=== PATIENT | female | born 1965 | race Caucasian/White ===

== ENCOUNTER → 2022-12-17 08:34 | Outpatient (CLI) | payer BC, SELFPAY ==
[2022-12-17 09:33] LABS: BUN Creatinine Ratio 14.5 (6-22); Blood Urea Nitrogen 10 mg/dL (7-17); Calcium 9.5 mg/dL (8.4-10.2); Carbon Dioxide 30 mmol/L (22-32); Chloride 102 mmol/L (98-107); Cholesterol 237 mg/dL (140-199); Estimated Glomerular Filt Rate > 60 mL/min (>60); Glucose 87 mg/dL (70-100); HDL Cholesterol 92 mg/dL (40-60); HEMOLYSIS < 15 (0-50); LDL Cholesterol Calculated 133 mg/dL (<100); Potassium 3.9 mmol/L (3.4-5.1); Sodium 136 mmol/L (137-145); Triglycerides 61 mg/dL (35-150)
[2022-12-17 09:49] LABS: Vitamin D 25 Hydroxy (D3) 33.3 ng/mL (30.0-100.0)
[2022-12-17 09:51] LABS: Free T3, Triiodothyronine Free 3.83 pg/mL (2.77-5.27); Free T4, Direct Thyroxine 1.17 ng/dL (0.78-2.19)
[2022-12-17 10:04] LABS: Thyroid Stimulating Hormone 1.12 uIU/mL (0.47-4.68)
== END ==
PROVIDERS: PCP Family Medicine; Referring Provider Family Medicine; Visit Provider Family Medicine
DX: E05.90 Thyrotoxicosis, unspecified without thyrotoxic crisis or storm (principal); E55.9 Vitamin D deficiency, unspecified; Z00.00 Encounter for general adult medical examination without abnormal findings; Z13.220 Encounter for screening for lipoid disorders
CPT/HCPCS: 36415; 80048; 80061; 82306; 84439; 84443; 84481

== ENCOUNTER → 2023-11-21 16:55 | Outpatient (CLI) | payer BC, SELFPAY ==
--- NOTE | 2023-11-21 16:58 | DI.RAD.S_ITS ---
PROCEDURE: XR FOOT LT MIN 3V INDICATIONS: Left foot pain TECHNIQUE: 3 views of the foot were acquired. COMPARISON: None. FINDINGS: Bones: No fractures or dislocations. Osteoarthritic changes are noted throughout left foot most notably in great toe and distal interphalangeal joints of 2nd through 5th toes. No suspicious bony lesions. Soft tissues: No tibiotalar joint effusion. Achilles tendon appears normal. IMPRESSION: [id number] left foot osteoarthritis more notably in great toe and distal interphalangeal joints. No fracture or dislocation. Dictated by: Manish Sorensen M.D. on 11/22/2023 at 10:54 Approved by: Manish Sorensen M.D. on 11/22/2023 at 10:55
== END ==
PROVIDERS: PCP Family Medicine; Referring Provider Nurse Practitioner Family; Visit Provider Nurse Practitioner Family
DX: M19.072 Primary osteoarthritis, left ankle and foot (principal); M79.672 Pain in left foot
CPT/HCPCS: 73630

== ENCOUNTER → 2024-08-04 08:52 | Outpatient (CLI) | payer BC, SELFPAY ==
[2024-08-04 10:33] LABS: Cholesterol 249 mg/dL (140-199); HDL Cholesterol 96 mg/dL (40-60); LDL Cholesterol Calculated 139 mg/dL (<100); Triglycerides 69 mg/dL (35-150)
[2024-08-05 08:10] LABS: CRP, High Sensitivity 0.56 mg/L (0.00-3.00)
== END ==
PROVIDERS: PCP Family Medicine; Referring Provider Family Medicine; Visit Provider Family Medicine
DX: E78.00 Pure hypercholesterolemia, unspecified (principal)
CPT/HCPCS: 80061; 86140